=== PATIENT | male | born 1970 | race Caucasian/White ===

== ENCOUNTER 2016-12-30 22:34 | Emergency (ER) | payer OTHER ==
[2016-12-30] MEDS ORDERED: HYDROcodone/Acetaminophen 5/325 mg Tablet ONE (23:14)
[2016-12-30] MEDS ORDERED: Cephalexin 500 MG CAP ONE (23:14)
[2016-12-30] MEDS ORDERED: Adacel (T-DAP) 0.5 ML VIAL ONE (23:14)
--- NOTE | 2016-12-30 23:23 | CT ---
CT OF BRAIN PERFORMED WITHOUT CONTRAST ENHANCEMENT: 12/30/16 HISTORY: Head injury. There is generalized ventricular and sulcal prominence. There is no signs of intracerebral hemorrhag e or extra-axial fluid collections. A frontal scalp laceration is present. No underlying fracture. T he mastoid air cells and visualized sinuses are clear. IMPRESSION: No acute intracranial abnormalities. POS: [facility]
--- NOTE | 2016-12-30 23:39 | ERRECORD ---
[facility] EMERGENCY RECORD HPI HEAD INJURY (22:48 SHAN) CHIEF COMPLAINT: Patient presents for evaluation of head injury, Patient presents for evaluation of had head contusion with loc at senior living; unclear details. HISTORIAN: History provided by patient. MECHANISM OF INJURY: Mechanism of injury: Blunt trauma. TIME COURSE: Sudden onset of symptoms. ROS (22:49 SHAN) CONSTITUTIONAL: Negative constitutional review of systems. EYES: Negative eye review of systems. ENT: Negative ears, nose, throat review of systems. CARDIOVASCULAR: Negative cardiovascular review of systems. RESPIRATORY: Negative respiratory review of systems. GI: Negative gastrointestinal review of systems. MUSCULOSKELETAL: Negative musculoskeletal review of systems. SKIN: head injury with loc. NEUROLOGIC: Negative neurologic review of systems. NOTES: All systems reviewed, negative except as described above. KNOWN ALLERGIES Penicillins CURRENT MEDICATIONS No recorded medications VITAL SIGNS (22:38 MBOS) VITAL SIGNS: BP: 142/87, Pulse: 88, Resp: 27, Pain: 10, O2 sat: 97, Time: 12/30/2016 22:38. PHYSICAL EXAM (22:49 SHAN) CONSTITUTIONAL: Patient afebrile, Pulse normal, Blood pressure normal, Respiratory rate normal, Normal pulse oximetry, Patient appears non toxic, Patient appears pain free, Patient alert and oriented to person, place and time, Nursing notes reviewed. HEAD: 8 cm laceration on frontal scalp, high; jagged laceration more shallow under that 2 cm. EYES: Eye exam included findings of eyelids normal to inspection, Pupils equally round and reactive to light, Extraocular muscles intact. ENT: Pharynx exam normal, Uvula exam normal, Tonsil exam normal. NECK: Neck exam included findings of normal range of motion, Trachea midline. RESPIRATORY CHEST: Respiratory and chest exam normal. CARDIOVASCULAR: Cardiovascular exam included findings of heart rate regular rate and rhythm, Heart sounds normal. ABDOMEN MALE: Abdominal exam included findings of abdomen nontender, Bowel sounds normal. BACK: Back exam normal. UPPER EXTREMITY: Upper extremity exam included findings of &a-1R&a+25V*p+0X*c9509Y*c202B*c15G*c2P*p-0X&a-25V&a+1R Name: Emeterio Shi Jez : 1970 M46 MedRec: [id number] AcctNum: [id number] Prepared: WedDec 30, 2016 23:49 by Interface Page 1 of 2 pMD [facility] EMERGENCY RECORD inspection normal, Range of motion normal. NEURO: Neuro exam normal. SKIN: Skin exam normal. MEDICATION ADMINISTRATION SUMMARY Drug Name: Keflex, Dose Ordered: 1000 mg, Route: Oral, Status: Canceled, Time: 23:25 12/30/2016, Drug Name: Keflex, Dose Ordered: 2 cap(s), Route: Oral, Status: Given, Time: 23:26 12/30/2016, Drug Name: *[place], Dose Ordered: 2 tab(s), Route: Oral, Status: Given, Time: 23:23 12/30/2016, Drug Name: Adacel(Tdap Adolesn/Adult)(PF), Dose Ordered: 0.5 mL, Route: Intramuscular, Status: Given, Time: 23:21 12/30/2016, *Additional information available in notes, Detailed record available in Medication Service section. PROBLEM LIST No recorded problems DIAGNOSIS (: SEVEN) FINAL: PRIMARY: 7 cm and 3 cm lacerations on frontal scalp; stapled. PRESCRIPTION (: SEVEN) Keflex: CAPSULE : 500 mg : ORAL : Quantity: 1 Unit: cap(s) Route: ORAL Schedule: 4 times a day Dispense: 40 Unit: cap(s) May substitute. Refills: No Refills POTENTIAL ALLERGY REACTION: 'Penicillins' Override Rationale: Benefits outweigh risks. NOTES: No Refills. acetaminophen-codeine: TABLET : 300 mg-30 mg : ORAL : Quantity: 1 Unit: tab(s) Route: ORAL Schedule: every 4 hours prn Dispense: 30 May substitute. Refills: No Refills . NOTES: No Refills. DISPOSITION PATIENT: Disposition Type: Discharge, Disposition: *Discharge Home. (: SEVEN) Patient left the department. (23:41 MBOS) Burnett: ALFONZO=MARCIE Thayer, Daniela AMEZCUA=MD Charlie, Gonzalo &a-1R&a+25V*p+0X*p9204R*c202B*c15G*c2P*p-0X&a-25V&a+1R Name: Ari Shiy Jez : 1970 M46 MedRec: [id number] AcctNum: [id number] Prepared: Bijan Dec 30, 2016 23:49 by Interface Page 2 of 2 pMD MTDD
--- NOTE | 2016-12-30 23:46 | PICIS ---
[facility] [place] EMERGENCY RECORD TRIAGE (22:40 MBOS) PATIENT: NAME: Emeterio Shi, AGE: 46, GENDER: male, : Wed1970, TIME OF GREET: WedDec 30, 2016 22:35, ECODE BILLING MAP: [facility], Zip Code: ., KG WEIGHT: 94.80, PHONE: ., , , PERSON ID: [id number], PCP: Luisito. (22:40 MBOS) TRIAGE NOTES: Patient states he was on his bunk, coughing profusely, and then was laying on the floor in a pool of blood with no recollection of falling. (22:40 MBOS) COMPLAINT: HIGH RISK COMPLAINT: Head Injury. (22:40 MBOS) ADMISSION: URGENCY: 2 Emergent, ADMISSION SOURCE: Detention/Group Home, TRANSPORT: LAW ENFORCEMENT, BED: ER -02. (22:40 MBOS) PROVIDERS: TRIAGE NURSE: Daniela Thayer RN. (22:40 MBOS) VITAL SIGNS: BP 142/87, Pulse 88, Resp 27, Pain 10, O2 Sat 97, Time 12/30/2016 22:38. (22:38 MBOS) KNOWN ALLERGIES Penicillins CURRENT MEDICATIONS No recorded medications VITAL SIGNS (22:38 MBOS) VITAL SIGNS: BP: 142/87, Pulse: 88, Resp: 27, Pain: 10, O2 sat: 97, Time: 12/30/2016 22:38. NURSING ASSESSMENT: SKIN (23:28 MBOS) CONSTITUTIONAL: Patient arrives ambulatory, Gait steady, History obtained from patient, Patient appears comfortable, Patient cooperative, Patient alert, Oriented to person, place and time, Skin warm, Skin dry, Skin normal in color, Mucous membranes pink, Mucous membranes moist, Patient is well-groomed, Patient complains of fell, LOC, lacerations to head. PAIN: on a scale 0-10 patient rates pain as 10. SKIN: Inspection findings include laceration, to forehead, length (cm) 5 cm, 7 cm, two lacerations to forehead. SAFETY: Side rails up, Cart/Stretcher in lowest position, Call light within reach, Hospital ID band on. NURSING PROCEDURE: TRANSPORT TO TESTS (23:13 KHER) PATIENT IDENTIFIER: Patient actively involved in identification process. TRANSPORT TO TESTS: Transport indicated to facilitate diagnosis, Patient transported to CT scan, via cart, Accompanied by x-ray life support technician, Accompanied by law enforcement, Patient arrived in location at 2246, Patient departed location at 2253. FOLLOW-UP: After procedure, patient returned to emergency department. SAFETY: Side rails up, Cart/Stretcher in lowest position, Call &a-1R&a+25V*p+0X*r1407L*c202B*c15G*c2P*p-0X&a-25V&a+1R Name: Emeterio Shi : 1970 M46 MedRec: [id number] AcctNum: [id number] Prepared: WedDec 30, 2016 23:56 by Interface Page [address] [facility] [place] EMERGENCY RECORD light within reach, Hospital ID band on. NURSING PROCEDURE: WOUND CARE (23:54 MBOS) PATIENT IDENTIFIER: Patient actively involved in identification process, Patient's identity verified by patient stating name, Patient's identity verified by patient stating date, Patient's identity verified by hospital ID bracelet. TIMEOUT: Prior to procedure, correct patient verified by, Correct procedure verified, Correct site verified, Correct equipment utilized, Physician performing procedure Dr. Guerra. WOUND CARE: Wound care indicated for preparing wound for repair, Wound site: forehead lacerations, Cause of wound: fall, Wound repaired with jory, by Dr Guerra, using 1 staple gun, Tetanus status unknown. FOLLOW-UP: After procedure, simple dressing applied, using telfa pad dressing, wrapped with 4 inch conform bandage. SAFETY: Side rails up, Cart/Stretcher in lowest position, Call light within reach, Hospital ID band on. ORDER DETAILS Order Name: CBC with Differential, Status: Canceled, Time: 23:31 12/30/2016, User: System, - Ordered for: MD Guerra Stanley, - Entered by: MD Guerra Stanley - WedDec 30, 2016 22:45, - Quantity: 1, Order Name: chart element #1, Status: Active, Time: 23:54 12/30/2016, User: System, - Ordered for: MD Guerra Stanley, - Entered by: MARCIE Thayer, Daniela - WedDec 30, 2016 23:54, - Quantity: 1, Order Name: chart element #4, Status: Active, Time: 23:54 12/30/2016, User: System, - Ordered for: MD Guerra Stanley, - Entered by: MARCIE Thayer, Daniela - WedDec 30, 2016 23:54, - Quantity: 1, Order Name: Comprehensive Metabolic Panel, Status: Canceled, Time: 23:31 12/30/2016, User: System, - Ordered for: MD Guerra Stanley, - Entered by: MD Guerra Stanley - [facility] Dec 30, 2016 22:46, - Quantity: 1, Order Name: CT Brain WO Con, Status: Active, Time: 22:45 12/30/2016, User: SHAN, - Ordered for: MD Guerra Stanley, - Entered by: MD Guerra Stanley - [facility] Dec 30, 2016 22:45, - Quantity: 1. MEDICATION ADMINISTRATION SUMMARY Drug Name: Keflex, Dose Ordered: 1000 mg, Route: Oral, Status: &a-1R&a+25V*p+0X*j1467Z*c202B*c15G*c2P*p-0X&a-25V&a+1R Name: Emeterio Shi Jez : 1970 M46 MedRec: [id number] AcctNum: [id number] Prepared: WedDec 30, 2016 23:56 by Interface Page [address] [facility] [place] EMERGENCY RECORD Canceled, Time: 23:25 12/30/2016, Drug Name: Keflex, Dose Ordered: 2 cap(s), Route: Oral, Status: Given, Time: 23:26 12/30/2016, Drug Name: *[place], Dose Ordered: 2 tab(s), Route: Oral, Status: Given, Time: 23:23 12/30/2016, Drug Name: Adacel(Tdap Adolesn/Adult)(PF), Dose Ordered: 0.5 mL, Route: Intramuscular, Status: Given, Time: 23:21 12/30/2016, *Additional information available in notes, Detailed record available in Medication Service section. MEDICATION SERVICE Adacel(Tdap Adolesn/Adult)(PF): Order: Adacel(Tdap Adolesn/Adult)(PF) (diphth,pertuss(acell),tet vac/preservative free) - Dose: 0.5 mL : Intramuscular Schedule: Now Ordered by: Gonzalo Guerra MD Entered by: Gonzalo Guerra MD WedDec 30, 2016 22:47 , Acknowledged by: Daniela Thayer RN WedDec 30, 2016 23:11 Documented as given by: Daniela Thayer RN WedDec 30, 2016 23:21 Patient, Medication, Dose, Route and Time verified prior to administration. IM immunization, Vaccination information sheet given to patient, Correct patient, time, route, dose and medication confirmed prior to administration, Patient advised of actions and side-effects prior to administration, Allergies confirmed and medications reviewed prior to administration, Patient in position of comfort, Side rails up, Cart in lowest position. Keflex: Order: Keflex (cephalexin monohydrate) - Dose: 2 cap(s) : Oral POTENTIAL ALLERGY REACTION: 'Penicillins' - Benefits outweigh risks Schedule: Now Ordered by: Gonzalo Guerra MD Entered by: Gonzalo Guerra MD WedDec 30, 2016 23:15 Documented as given by: Daniela Thayer RN WedDec 30, 2016 23:26 Patient, Medication, Dose, Route and Time verified prior to administration. Patient appears Awake and alert- acceptable, Correct patient, time, route, dose and medication confirmed prior to administration, Patient advised of actions and side-effects prior to administration, Allergies confirmed and medications reviewed prior to administration, Patient in position of comfort, Side rails up, Cart in lowest position. Keller: Order: Keller (hydrocodone bitartrate/acetaminophen) - Dose: 2 tab(s) : Oral Schedule: Now Notes: Ordered by: Gonzalo Guerra MD Entered by: Gonzalo Guerra MD WedDec 30, 2016 22:46 , Acknowledged by: Daniela Thayer RN WedDec 30, 2016 23:11 Documented as given by: Daniela Thayer RN WedDec 30, 2016 23:23 &a-1R&a+25V*p+0X*h9976W*c202B*c15G*c2P*p-0X&a-25V&a+1R Name: Emeterio Shi : 1970 M46 MedRec: [id number] AcctNum: [id number] Prepared: WedDec 30, 2016 23:56 by Interface Page [address] [facility] [place] EMERGENCY RECORD Patient, Medication, Dose, Route and Time verified prior to administration. Patient appears Awake and alert- acceptable, Correct patient, time, route, dose and medication confirmed prior to administration, Patient advised of actions and side-effects prior to administration, Allergies confirmed and medications reviewed prior to administration, Patient in position of comfort, Side rails up, Cart in lowest position. (CANCELED) Keflex: Order: Keflex (cephalexin monohydrate) - Dose: 1000 mg : Oral POTENTIAL ALLERGY REACTION: 'Penicillins' - Not a true drug allergy, Potential interaction discussed with patient/family, Reviewed with patient Ordered by: Gonzalo Guerra MD Entered by: Daniela Thayer RN WedDec 30, 2016 23:25 Canceled by: Daniela Thayer RN. WedDec 30, 2016 23:25 Cancel reason: duplicate order. HPI HEAD INJURY (22:48 SHAN) CHIEF COMPLAINT: Patient presents for evaluation of head injury, Patient presents for evaluation of had head contusion with loc at alf; unclear details. HISTORIAN: History provided by patient. MECHANISM OF INJURY: Mechanism of injury: Blunt trauma. TIME COURSE: Sudden onset of symptoms. ROS (22:49 SHAN) CONSTITUTIONAL: Negative constitutional review of systems. EYES: Negative eye review of systems. ENT: Negative ears, nose, throat review of systems. CARDIOVASCULAR: Negative cardiovascular review of systems. RESPIRATORY: Negative respiratory review of systems. GI: Negative gastrointestinal review of systems. MUSCULOSKELETAL: Negative musculoskeletal review of systems. SKIN: head injury with loc. NEUROLOGIC: Negative neurologic review of systems. NOTES: All systems reviewed, negative except as described above. PHYSICAL EXAM (22:49 SHAN) CONSTITUTIONAL: Patient afebrile, Pulse normal, Blood pressure normal, Respiratory rate normal, Normal pulse oximetry, Patient appears non toxic, Patient appears pain free, Patient alert and oriented to person, place and time, Nursing notes reviewed. HEAD: 8 cm laceration on frontal scalp, high; jagged laceration more shallow under that 2 cm. EYES: Eye exam included findings of eyelids normal to inspection, Pupils equally round and reactive to light, Extraocular muscles intact. ENT: Pharynx exam normal, Uvula exam normal, Tonsil exam normal. NECK: Neck exam included findings of normal range of motion, &a-1R&a+25V*p+0X*y3124R*c202B*c15G*c2P*p-0X&a-25V&a+1R Name: Emeterio Shi : 1970 M46 MedRec: [id number] AcctNum: [id number] Prepared: WedDec 30, 2016 23:56 by Interface Page [address] [facility] [place] EMERGENCY RECORD Trachea midline. RESPIRATORY CHEST: Respiratory and chest exam normal. CARDIOVASCULAR: Cardiovascular exam included findings of heart rate regular rate and rhythm, Heart sounds normal. ABDOMEN MALE: Abdominal exam included findings of abdomen nontender, Bowel sounds normal. BACK: Back exam normal. UPPER EXTREMITY: Upper extremity exam included findings of inspection normal, Range of motion normal. NEURO: Neuro exam normal. SKIN: Skin exam normal. EVENTS TRANSFER: Triage to Emergency Emergency Room -02. (WedDec 30, 2016 22:40 MBOS) Removed from Emergency Emergency Room -02. (23:41 MBOS) PROBLEM LIST No recorded problems DIAGNOSIS (23:23 SHAN) FINAL: PRIMARY: 7 cm and 3 cm lacerations on frontal scalp; stapled. DISPOSITION PATIENT: Disposition Type: Discharge, Disposition: *Discharge Home. (23:23 SHAN) Patient left the department. (23:41 MBOS) INSTRUCTION (23:25 SHAN) DISCHARGE: LACERATION, SCALP. SPECIAL: 1. antibiotic four times a day until gone 2. pain pill one every 4 hours if needed; will constipate, cause drousiness, upset stomach, and is habit forming 3. watch for infection 4. jory out in about 10 days 5. return if problems develop 6. clean the wound with peroxide as needed to keep it clean. PRESCRIPTION (23:22 SHAN) Keflex: CAPSULE : 500 mg : ORAL : Quantity: 1 Unit: cap(s) Route: ORAL Schedule: 4 times a day Dispense: 40 Unit: cap(s) May substitute. Refills: No Refills POTENTIAL ALLERGY REACTION: 'Penicillins' Override Rationale: Benefits outweigh risks. NOTES: No Refills. acetaminophen-codeine: TABLET : 300 mg-30 mg : ORAL : Quantity: 1 Unit: tab(s) Route: ORAL Schedule: every 4 hours prn Dispense: 30 &a-1R&a+25V*p+0X*q0065Z*c202B*c15G*c2P*p-0X&a-25V&a+1R Name: Jose Guadalupe Emeterio Jez : 1970 6 MedRec: [id number] AcctNum: [id number] Prepared: WedDec 30, 2016 23:56 by Interface Page [address] [facility] [place] EMERGENCY RECORD May substitute. Refills: No Refills . NOTES: No Refills. IMAGING (23:37 MBOS) RETURN TO NURSING HOME FORM: Image captured from scanner. ADMIN (23:26 SHAN) DIGITAL SIGNATURE: MD Guerra Stanley. Burnett: ROSEY=KYE James Kayce MBOS=MARCIE Thayer, Danielasweta AMEZCUA=MD Guerra Stanley &a-1R&a+25V*p+0X*f3836N*c202B*c15G*c2P*p-0X&a-25V&a+1R Name: Emeterio Shi : 1970 6 MedRec: [id number] AcctNum: [id number] Prepared: WedDec 30, 2016 23:56 by Interface Page 6 of 6 pMD MTDD
== END 2016-12-30 23:39 ==
LOC: NAV ERS 22:34
DX: S01.01XA Laceration without foreign body of scalp, initial encounter (principal); X58.XXXA Exposure to other specified factors, initial encounter
CPT/HCPCS: 12004; 70450; 90471; 90715